=== PATIENT | female | born 1930 | race Hispanic/Latino ===

== ENCOUNTER 2019-12-26 11:20 | Inpatient (IN) | payer MEDICARE ==
[~2019-12-26] VITALS: Ht 172.7 cm; Wt 93.9 kg
[2019-12-26] MEDS ORDERED: SODIUM CHLORIDE 0.9% 1000ML 1,000 ML IV STA (11:59)
[2019-12-26] MEDS ORDERED: ONDANSETRON HCL INJ 2MG/ML 2ML 2 MG/ML VIAL IV STA (11:59)
[2019-12-26 12:11] LABS: BASOPHILS % 0.3 % (0.0-1.0); EOSINOPHILS # (AUTO) 3.7 (0.0-0.4); EOSINOPHILS % 26.2 % (0.0-6.0); HEMATOCRIT 45.5 % (34.2-44.1); HEMOGLOBIN 15.2 g/dL (12.0-16.0); LYMPHOCYTES # (AUTO) 2.2 (1.0-3.2); LYMPHOCYTES % 15.1 % (18.0-39.1); MEAN CORPUSCULAR HEMOGLOBIN 30.5 pg (28-32); MEAN CORPUSCULAR HGB CONC 33.4 g/dL (31-35); MEAN CORPUSCULAR VOLUME 91.4 fL (81-99); MONOCYTES # (AUTO) 0.7 (0.2-0.8); NEUTROPHILS # (AUTO) 7.5 (2.1-6.9); NEUTROPHILS % 52.6 % (38.7-80.0); PLATELET COUNT 290 x10e3/uL (140-360); RED BLOOD COUNT 4.98 x10e6/uL (3.6-5.1); RED CELL DISTRIBUTION WIDTH 16.3 % (11.7-14.4)
[2019-12-26 12:21] LABS: COLOR,URINE YELLOW (YELLOW)
[2019-12-26 12:22] LABS: CLARITY,URINE SL CLOUDY (CLEAR); INR 1.29; KETONES,URINE TRACE (NEGATIVE); LEUKOCYTE ESTERASE ,URINE SMALL (NEGATIVE); NITRITE,URINE NEGATIVE (NEGATIVE); PROTEIN,URINE DIPSTICK TRACE (NEGATIVE); PROTHROMBIN TIME 16.7 seconds (11.9-14.5)
[2019-12-26 12:23] LABS: BACTERIA,URINE RARE /HPF; BILIRUBIN,URINE SMALL (NEGATIVE); EPITHELIAL CELLS,URINE FEW /LPF; PARTIAL THROMBOPLASTIN TIME 28.6 seconds (23.8-35.5); URINE UROBILINOGEN 0.2 mg/dL (0.2 - 1)
[2019-12-26] MEDS ORDERED: PANTOPRAZOLE 40 MG 10ML VIAL IV ONE (12:30)
[2019-12-26 12:31] LABS: ALBUMIN 2.7 g/dL (3.5-5.0); ALBUMIN/GLOBULIN RATIO 0.7 (0.8-2.0); ANION GAP 18.5 mmol/L (8-16); CREATININE, SERUM 1.77 mg/dL (0.57-1.11); MAGNESIUM 2.3 MG/DL (1.3-2.1); POTASSIUM 4.5 mmol/L (3.5-5.1)
[2019-12-26 12:37] LABS: CREATINE KINASE MB 3.2 ng/mL (0-5.0)
[2019-12-26] MEDS ORDERED: MELOXICAM15 MG PO (13:06)
[2019-12-26] MEDS ORDERED: OXYBUTYNIN CHLOR5 M1 PO (13:06)
[2019-12-26] MEDS ORDERED: FAMOTIDINE20 MG PO (13:06)
[2019-12-26] MEDS ORDERED: ESCITALOPRAM OX10 MG PO (13:06)
[2019-12-26] MEDS ORDERED: CLINDAMYCIN HC300 MG PO (13:06)
[2019-12-26 13:27] LABS: OCCULT BLOOD STOOL POSITIVE (NEGATIVE)
[2019-12-26] MEDS: PIPERACILLIN/TAZO 2.25 GM 50 ML IV SCH ×2 (13:35→17:45)
[2019-12-26] MEDS ORDERED: ONDANSETRON HCL INJ 2MG/ML 2ML 2 MG/ML VIAL IV PRN (13:45)
[2019-12-26] MEDS ORDERED: VANCOMYCIN 1GM/NS 250 ML 250 ML IV ONE (14:00)
[2019-12-26] MEDS: SODIUM CHLORIDE 0.9% 1000ML 1,000 ML IV SCH ×2 (14:15→17:45)
[2019-12-26 14:58] LABS: C DIFFICILE TOXIN A&B AMP PROB NEGATIVE (NEGATIVE)
[2019-12-26 15:35] VITALS: BP 126/72
[2019-12-26 16:12] VITALS: BP 126/72
[2019-12-26 16:30] VITALS: BP 126/72
[2019-12-26] MEDS ORDERED: ACETAMINOPHEN 325 MG TAB PO PRN (16:30)
[2019-12-26 18:53] LABS: CREATINE KINASE MB 3.1 ng/mL (0-5.0)
[2019-12-26 20:00] VITALS: BP 149/79
[2019-12-26] MEDS ORDERED: INFLUENZA VIRUS VAC SPLIT INJ 0.5 ML SYR IM SCH (20:30)
[2019-12-26 20:36] VITALS: BP 149/79
[2019-12-26] MEDS ORDERED: FAMOTIDINE 20 MG/2 ML VIAL IV SCH (23:30)
[2019-12-26] MEDS ORDERED: FAMOTIDINE 20 MG/2 ML VIAL IV ONE (23:45)
[2019-12-27] VITALS (8 sets, daily range): BP systolic 108–142; BP diastolic 60–78
[2019-12-27] MEDS: PIPERACILLIN/TAZO 2.25 GM 50 ML IV SCH ×2 (00:29→05:35)
[2019-12-27 01:40] LABS: CREATINE KINASE MB 7.2 ng/mL (0-5.0)
[2019-12-27] MEDS: BALSAM PERU/CASTOR OIL 60 GM OINT...G. TP SCH ×2 (03:52→09:00)
[2019-12-27 06:04] LABS: BASOPHILS % 0.4 % (0.0-1.0); EOSINOPHILS # (AUTO) 2.8 (0.0-0.4); HEMATOCRIT 40.5 % (34.2-44.1); HEMOGLOBIN 13.4 g/dL (12.0-16.0); LYMPHOCYTES # (AUTO) 1.4 (1.0-3.2); LYMPHOCYTES % 12.6 % (18.0-39.1); MEAN CORPUSCULAR HEMOGLOBIN 31.7 pg (28-32); MEAN CORPUSCULAR HGB CONC 33.1 g/dL (31-35); MEAN CORPUSCULAR VOLUME 95.7 fL (81-99); MONOCYTES # (AUTO) 0.6 (0.2-0.8); MONOCYTES % 5.4 % (4.4-11.3); NEUTROPHILS # (AUTO) 6.3 (2.1-6.9); PLATELET COUNT 183 x10e3/uL (140-360); RED BLOOD COUNT 4.23 x10e6/uL (3.6-5.1); RED CELL DISTRIBUTION WIDTH 16.6 % (11.7-14.4)
[2019-12-27 06:24] LABS: CREATINE KINASE MB 3.6 ng/mL (0-5.0)
[2019-12-27 07:00] LABS: ALBUMIN/GLOBULIN RATIO 0.5 (0.8-2.0); ANION GAP 19.1 mmol/L (8-16); CALCIUM 7.3 mg/dL (8.4-10.2); CREATININE, SERUM 1.5 mg/dL (0.57-1.11); POTASSIUM 4.1 mmol/L (3.5-5.1)
[2019-12-27 08:08] LABS: ANISOCYTOSIS SLIGHT; EOSINOPHILS % (MANUAL) 30 % (0-7); HYPOCHROMASIA SLIGHT; LYMPHOCYTES % (MANUAL) 6 % (19-48); MONOCYTES % (MANUAL) 4 % (3.4-9.0); NEUTROPHILS % (MANUAL) 60 % (40-74); PLATELET ESTIMATE ADEQUATE; PLATELET MORPHOLOGY COMMENT NORMAL; RBC MORPHOLOGY COMMENT ABNORMAL
[2019-12-27] MEDS: SODIUM CHLORIDE 0.9% 1000ML 1,000 ML IV SCH (09:45)
[2019-12-27] MEDS: ESCITALOPRAM OXALATE 10 MG TAB PO SCH (09:55)
[2019-12-27] MEDS ORDERED: CEFAZOLIN SOD 1 GM VIAL IV SCH (11:00)
[2019-12-27] MEDS: CEFAZOLIN SOD 1 GM/NS 50ML 50 ML IV SCH ×2 (12:30→21:00)
[2019-12-27] MEDS: VANCOMYCIN 250MG/5ML ORAL SOLN PO SCH ×2 (12:30→22:00)
[2019-12-27] MEDS: FAMOTIDINE 20 MG TAB PO SCH ×2 (12:30→16:45)
[2019-12-27] MEDS: TRAMADOL HCL 50 MG TAB PO PRN ×2 (14:20→21:08)
[2019-12-27] MEDS: ENOXAPARIN 30 MG/0.3 ML SYR SC SCH (16:45)
[2019-12-28] VITALS (8 sets, daily range): BP systolic 108–130; BP diastolic 56–76
[2019-12-28] MEDS: CEFAZOLIN SOD 1 GM/NS 50ML 50 ML IV SCH ×3 (04:22→20:33)
[2019-12-28] MEDS: VANCOMYCIN 250MG/5ML ORAL SOLN PO SCH ×3 (06:07→22:00)
[2019-12-28] MEDS: SODIUM CHLORIDE 0.9% 1000ML 1,000 ML IV SCH (06:07)
[2019-12-28 06:26] LABS: ANION GAP 13.1 mmol/L (8-16); CALCIUM 7.5 mg/dL (8.4-10.2); CREATININE, SERUM 1.23 mg/dL (0.57-1.11); POTASSIUM 3.1 mmol/L (3.5-5.1)
[2019-12-28] MEDS: ESCITALOPRAM OXALATE 10 MG TAB PO SCH (08:43)
[2019-12-28] MEDS: BALSAM PERU/CASTOR OIL 60 GM OINT...G. TP SCH (08:43)
[2019-12-28] MEDS: FAMOTIDINE 20 MG TAB PO SCH ×2 (08:48→17:30)
[2019-12-28] MEDS: TRAMADOL HCL 50 MG TAB PO PRN (08:48)
[2019-12-28 08:53] LABS: BASOPHILS % 0.3 % (0.0-1.0); EOSINOPHILS # (AUTO) 6.3 (0.0-0.4); EOSINOPHILS % 51.1 % (0.0-6.0); HEMATOCRIT 44.1 % (34.2-44.1); HEMOGLOBIN 13.8 g/dL (12.0-16.0); LYMPHOCYTES # (AUTO) 1.2 (1.0-3.2); LYMPHOCYTES % 9.4 % (18.0-39.1); MEAN CORPUSCULAR HEMOGLOBIN 30.1 pg (28-32); MEAN CORPUSCULAR HGB CONC 31.3 g/dL (31-35); MEAN CORPUSCULAR VOLUME 96.3 fL (81-99); MONOCYTES # (AUTO) 0.6 (0.2-0.8); MONOCYTES % 4.7 % (4.4-11.3); NEUTROPHILS # (AUTO) 4.2 (2.1-6.9); NEUTROPHILS % 34.1 % (38.7-80.0); PLATELET COUNT 205 x10e3/uL (140-360); RED BLOOD COUNT 4.58 x10e6/uL (3.6-5.1); RED CELL DISTRIBUTION WIDTH 16.8 % (11.7-14.4)
[2019-12-28 09:22] LABS: MAGNESIUM 1.9 MG/DL (1.3-2.1)
[2019-12-28 09:46] LABS: THYROID STIMULATING HORMONE 1.155 uIU/mL (0.350-4.940)
[2019-12-28] MEDS ORDERED: POTASSIUM CHLORIDE 10MEQ EA PO ONE (11:30)
[2019-12-28] MEDS: LIDOCAINE 4% PATCH TP SCH (11:30)
[2019-12-28] MEDS: LACTATED RINGER'S 1,000 ML INJ SCH (11:30)
[2019-12-28] MEDS: MEGESTROL ACETATE 40 MG TAB PO SCH ×2 (12:00→17:30)
[2019-12-28] MEDS: CHOLESTYRAMINE 4 GM PACKET PO SCH ×2 (12:49→17:48)
[2019-12-28] MEDS: FLUCONAZOLE 100 MG TAB PO SCH (14:57)
[2019-12-28] MEDS: ENOXAPARIN 30 MG/0.3 ML SYR SC SCH (17:30)
[2019-12-29] VITALS: BP 111/78
[2019-12-29] MEDS: LACTATED RINGER'S 1,000 ML INJ SCH ×3 (00:20→22:24)
[2019-12-29] MEDS: TRAMADOL HCL 50 MG TAB PO PRN ×2 (02:45→17:51)
[2019-12-29 04:00] VITALS: BP 122/91
[2019-12-29] MEDS: CEFAZOLIN SOD 1 GM/NS 50ML 50 ML IV SCH ×3 (04:00→22:00)
[2019-12-29] MEDS ORDERED: DIPHENHYDRAMINE HCL 25 MG/10 ML CUP PO PRN (06:15)
[2019-12-29] MEDS: VANCOMYCIN 250MG/5ML ORAL SOLN PO SCH ×3 (06:24→22:23)
[2019-12-29 07:54] VITALS: BP 108/61
[2019-12-29] MEDS: FLUCONAZOLE 100 MG TAB PO SCH (08:25)
[2019-12-29] MEDS: FAMOTIDINE 20 MG TAB PO SCH ×2 (08:25→17:18)
[2019-12-29] MEDS: LIDOCAINE 4% PATCH TP SCH (08:26)
[2019-12-29] MEDS: MEGESTROL ACETATE 40 MG TAB PO SCH ×2 (08:26→17:18)
[2019-12-29] MEDS: ESCITALOPRAM OXALATE 10 MG TAB PO SCH (08:26)
[2019-12-29] MEDS: BALSAM PERU/CASTOR OIL 60 GM OINT...G. TP SCH (08:35)
[2019-12-29] MEDS: NYSTATIN/TRIAMCINOLONE 30 GM CR TOP SCH (08:35)
[2019-12-29] MEDS: CHOLESTYRAMINE 4 GM PACKET PO SCH ×2 (10:00→17:18)
[2019-12-29 11:47] VITALS: BP 108/62
[2019-12-29 15:57] VITALS: BP 101/76
[2019-12-29] MEDS: ENOXAPARIN 30 MG/0.3 ML SYR SC SCH (17:18)
[2019-12-29 20:00] VITALS: BP 124/58
[2019-12-29] MEDS: DIPHENHYDRAMINE HCL ELIX 12.5 MG/5 ML UDC PO PRN (22:24)
[2019-12-30] VITALS (8 sets, daily range): BP systolic 105–131; BP diastolic 48–69
[2019-12-30] MEDS: CEFAZOLIN SOD 1 GM/NS 50ML 50 ML IV SCH (05:50)
[2019-12-30] MEDS: VANCOMYCIN 250MG/5ML ORAL SOLN PO SCH (05:50)
[2019-12-30] MEDS: FLUCONAZOLE 100 MG TAB PO SCH (08:38)
[2019-12-30] MEDS: ESCITALOPRAM OXALATE 10 MG TAB PO SCH (08:38)
[2019-12-30] MEDS: MEGESTROL ACETATE 40 MG TAB PO SCH ×2 (08:38→17:00)
[2019-12-30] MEDS: FAMOTIDINE 20 MG TAB PO SCH ×2 (08:38→16:30)
[2019-12-30] MEDS: LIDOCAINE 4% PATCH TP SCH (09:00)
[2019-12-30] MEDS: AZTREONAM 1 GM/NS 50 ML 50 ML IV SCH ×2 (10:00→22:20)
[2019-12-30] MEDS: CHOLESTYRAMINE 4 GM PACKET PO SCH ×2 (10:00→18:00)
[2019-12-30] MEDS: BALSAM PERU/CASTOR OIL 60 GM OINT...G. TP SCH (10:20)
[2019-12-30] MEDS: NYSTATIN/TRIAMCINOLONE 30 GM CR TOP SCH (10:20)
[2019-12-30 10:21] LABS: ANION GAP 11.9 mmol/L (8-16); CALCIUM 7.6 mg/dL (8.4-10.2); CREATININE, SERUM 1.05 mg/dL (0.57-1.11); POTASSIUM 3.9 mmol/L (3.5-5.1)
[2019-12-30] MEDS ORDERED: ONDANSETRON HCL 4 MG ORAL DISINTEGRATING TAB PO PRN (12:30)
[2019-12-30] MEDS ORDERED: SODIUM CHLORIDE 0.9% 250ML 250 ML ONE (13:58)
[2019-12-30] MEDS: METRONIDAZOLE 500 MG TAB PO SCH ×3 (14:00→22:20)
[2019-12-30] MEDS: VANCOMYCIN 750MG/NS 150ML IVPB 150 ML IV SCH ×2 (14:21→23:00)
[2019-12-30] MEDS: ENOXAPARIN 30 MG/0.3 ML SYR SC SCH (17:00)
[2019-12-30] MEDS: LACTATED RINGER'S 1,000 ML INJ SCH (22:20)
[2019-12-30] MEDS: TRAMADOL HCL 50 MG TAB PO PRN (22:21)
[2019-12-31] VITALS (8 sets, daily range): BP systolic 109–138; BP diastolic 62–79
[2019-12-31] MEDS: DIPHENHYDRAMINE HCL ELIX 12.5 MG/5 ML UDC PO PRN (06:14)
[2019-12-31] MEDS: TRAMADOL HCL 50 MG TAB PO PRN (06:14)
[2019-12-31] MEDS: METRONIDAZOLE 500 MG TAB PO SCH ×2 (06:14→15:00)
[2019-12-31 06:23] LABS: BASOPHILS # (AUTO) 0.1 (0.0-0.1); BASOPHILS % 0.4 % (0.0-1.0); EOSINOPHILS # (AUTO) 6.1 (0.0-0.4); EOSINOPHILS % 51.3 % (0.0-6.0); HEMATOCRIT 40.1 % (34.2-44.1); HEMOGLOBIN 13.3 g/dL (12.0-16.0); LYMPHOCYTES # (AUTO) 1.2 (1.0-3.2); LYMPHOCYTES % 10.4 % (18.0-39.1); MEAN CORPUSCULAR HEMOGLOBIN 31.1 pg (28-32); MEAN CORPUSCULAR HGB CONC 33.2 g/dL (31-35); MEAN CORPUSCULAR VOLUME 93.7 fL (81-99); MONOCYTES # (AUTO) 0.6 (0.2-0.8); MONOCYTES % 5.2 % (4.4-11.3); NEUTROPHILS # (AUTO) 3.7 (2.1-6.9); NEUTROPHILS % 31.4 % (38.7-80.0); PLATELET COUNT 159 x10e3/uL (140-360); RED BLOOD COUNT 4.28 x10e6/uL (3.6-5.1); RED CELL DISTRIBUTION WIDTH 17.2 % (11.7-14.4)
[2019-12-31 06:45] LABS: ANION GAP 13.8 mmol/L (8-16); CALCIUM 7.4 mg/dL (8.4-10.2); CREATININE, SERUM 0.9 mg/dL (0.57-1.11); POTASSIUM 3.8 mmol/L (3.5-5.1)
[2019-12-31 07:43] LABS: EOSINOPHILS % (MANUAL) 43 % (0-7); LYMPHOCYTES % (MANUAL) 5 % (19-48); MONOCYTES % (MANUAL) 5 % (3.4-9.0); NEUTROPHILS % (MANUAL) 45 % (40-74); PLATELET ESTIMATE ADEQUATE; PLATELET MORPHOLOGY COMMENT NORMAL
[2019-12-31 07:44] LABS: ANISOCYTOSIS SLIGHT; RBC MORPHOLOGY COMMENT NORMAL; TEAR DROP CELLS FEW
[2019-12-31] MEDS: ESCITALOPRAM OXALATE 10 MG TAB PO SCH (08:23)
[2019-12-31] MEDS: FLUCONAZOLE 100 MG TAB PO SCH (08:23)
[2019-12-31] MEDS: FAMOTIDINE 20 MG TAB PO SCH ×2 (08:23→15:31)
[2019-12-31] MEDS: LIDOCAINE 4% PATCH TP SCH (08:24)
[2019-12-31] MEDS: MEGESTROL ACETATE 40 MG TAB PO SCH ×2 (08:24→16:13)
[2019-12-31] MEDS: NYSTATIN/TRIAMCINOLONE 30 GM CR TOP SCH (09:56)
[2019-12-31] MEDS: BALSAM PERU/CASTOR OIL 60 GM OINT...G. TP SCH (09:56)
[2019-12-31] MEDS: CHOLESTYRAMINE 4 GM PACKET PO SCH ×2 (10:00→17:27)
[2019-12-31] MEDS: AZTREONAM 1 GM/NS 50 ML 50 ML IV SCH (10:47)
[2019-12-31] MEDS ORDERED: VANCOMYCIN 750MG/NS 150ML IVPB 150 ML IV SCH (15:30)
[2019-12-31] MEDS: ENOXAPARIN 30 MG/0.3 ML SYR SC SCH (16:13)
[2019-12-31] MEDS: VANCOMYCIN 250MG/5ML ORAL SOLN PO SCH (18:47)
[2020-01-01] VITALS (11 sets, daily range): BP systolic 94–140; BP diastolic 64–91
[2020-01-01] MEDS: VANCOMYCIN 250MG/5ML ORAL SOLN PO SCH ×3 (03:30→22:10)
[2020-01-01] MEDS: MEGESTROL ACETATE 40 MG TAB PO SCH ×2 (08:16→16:04)
[2020-01-01] MEDS: ESCITALOPRAM OXALATE 10 MG TAB PO SCH (08:16)
[2020-01-01] MEDS: FAMOTIDINE 20 MG TAB PO SCH ×2 (08:17→16:04)
[2020-01-01] MEDS: FLUCONAZOLE 100 MG TAB PO SCH (08:17)
[2020-01-01] MEDS: BALSAM PERU/CASTOR OIL 60 GM OINT...G. TP SCH (08:19)
[2020-01-01] MEDS: NYSTATIN/TRIAMCINOLONE 30 GM CR TOP SCH (08:20)
[2020-01-01] MEDS: LIDOCAINE 4% PATCH TP SCH (08:21)
[2020-01-01] MEDS: CHOLESTYRAMINE 4 GM PACKET PO SCH ×2 (09:00→17:01)
[2020-01-01] MEDS ORDERED: VANCOMYCIN 250MG/5ML ORAL SOLN PO SCH (09:00)
[2020-01-01] MEDS: ENOXAPARIN 30 MG/0.3 ML SYR SC SCH (16:04)
[2020-01-01] MEDS: TRAMADOL HCL 50 MG TAB PO PRN (22:40)
[2020-01-02 00:24] VITALS: BP 144/73
[2020-01-02] MEDS: VANCOMYCIN 250MG/5ML ORAL SOLN PO SCH ×4 (01:21→17:14)
[2020-01-02 05:51] VITALS: BP 106/89
[2020-01-02] MEDS: ESCITALOPRAM OXALATE 10 MG TAB PO SCH (08:23)
[2020-01-02] MEDS: FLUCONAZOLE 100 MG TAB PO SCH (08:23)
[2020-01-02] MEDS: MEGESTROL ACETATE 40 MG TAB PO SCH ×2 (08:23→16:38)
[2020-01-02] MEDS: FAMOTIDINE 20 MG TAB PO SCH ×2 (08:23→16:38)
[2020-01-02] MEDS: BALSAM PERU/CASTOR OIL 60 GM OINT...G. TP SCH (08:24)
[2020-01-02] MEDS: NYSTATIN/TRIAMCINOLONE 30 GM CR TOP SCH (08:24)
[2020-01-02] MEDS: LIDOCAINE 4% PATCH TP SCH (08:24)
[2020-01-02 08:26] LABS: BASOPHILS % 0.3 % (0.0-1.0); HEMATOCRIT 34.5 % (34.2-44.1); HEMOGLOBIN 11.3 g/dL (12.0-16.0); LYMPHOCYTES # (AUTO) 1.6 (1.0-3.2); LYMPHOCYTES % 13.5 % (18.0-39.1); MEAN CORPUSCULAR HEMOGLOBIN 30.2 pg (28-32); MEAN CORPUSCULAR HGB CONC 32.8 g/dL (31-35); MEAN CORPUSCULAR VOLUME 92.2 fL (81-99); MONOCYTES # (AUTO) 0.8 (0.2-0.8); MONOCYTES % 6.7 % (4.4-11.3); NEUTROPHILS # (AUTO) 3.3 (2.1-6.9); NEUTROPHILS % 27.8 % (38.7-80.0); PLATELET COUNT 135 x10e3/uL (140-360); RED BLOOD COUNT 3.74 x10e6/uL (3.6-5.1); RED CELL DISTRIBUTION WIDTH 17.4 % (11.7-14.4)
[2020-01-02 08:41] VITALS: BP 110/64
[2020-01-02 08:52] LABS: ANION GAP 10.6 mmol/L (8-16); BLOOD UREA NITROGEN 21 mg/dL (7-26); BUN/CREATININE RATIO 27 (6-25); CARBON DIOXIDE 19 mmol/L (22-29); CHLORIDE 108 mmol/L (98-107); CREATININE, SERUM 0.78 mg/dL (0.57-1.11); EST GLOMERULAR FILTRATION RATE > 60 ML/MIN (60-); GLUCOSE 72 mg/dL (74-118); POTASSIUM 3.6 mmol/L (3.5-5.1); SODIUM 134 mmol/L (136-145)
[2020-01-02 08:55] LABS: CALCIUM 6.8 mg/dL (8.4-10.2)
[2020-01-02 09:15] VITALS: BP 110/64
[2020-01-02] MEDS: CHOLESTYRAMINE 4 GM PACKET PO SCH ×2 (10:37→17:44)
[2020-01-02] MEDS: FOLIC ACID/CYANOCOB/PYRIDOXINE TAB PO SCH (10:37)
[2020-01-02 12:09] LABS: % IRON SATURATION 70 % (15-50); IRON 79 ug/dL (50-170); TOTAL IRON BINDING CAPACITY 113 ug/dL (261-478); TRANSFERRIN 81 mg/dL (180-382)
[2020-01-02 16:35] VITALS: BP 110/59
[2020-01-02] MEDS: ENOXAPARIN 30 MG/0.3 ML SYR SC SCH (16:38)
[2020-01-02 20:22] VITALS: BP 119/68
[2020-01-02] MEDS: DIPHENHYDRAMINE HCL ELIX 12.5 MG/5 ML UDC PO PRN (23:50)
[2020-01-03] VITALS (9 sets, daily range): BP systolic 100–146; BP diastolic 64–88
[2020-01-03] MEDS: VANCOMYCIN 250MG/5ML ORAL SOLN PO SCH ×4 (00:46→18:06)
[2020-01-03 05:28] LABS: BASOPHILS # (AUTO) 0.1 (0.0-0.1); BASOPHILS % 0.4 % (0.0-1.0); EOSINOPHILS # (AUTO) 6.8 (0.0-0.4); EOSINOPHILS % 50.8 % (0.0-6.0); HEMATOCRIT 37.1 % (34.2-44.1); HEMOGLOBIN 12.3 g/dL (12.0-16.0); LYMPHOCYTES % 15.2 % (18.0-39.1); MEAN CORPUSCULAR HEMOGLOBIN 30.3 pg (28-32); MEAN CORPUSCULAR HGB CONC 33.2 g/dL (31-35); MEAN CORPUSCULAR VOLUME 91.4 fL (81-99); MONOCYTES % 7.5 % (4.4-11.3); NEUTROPHILS # (AUTO) 3.4 (2.1-6.9); NEUTROPHILS % 25.4 % (38.7-80.0); PLATELET COUNT 166 x10e3/uL (140-360); RED BLOOD COUNT 4.06 x10e6/uL (3.6-5.1); RED CELL DISTRIBUTION WIDTH 17.6 % (11.7-14.4)
[2020-01-03 05:49] LABS: ANION GAP 13.3 mmol/L (8-16); BLOOD UREA NITROGEN 18 mg/dL (7-26); BUN/CREATININE RATIO 23 (6-25); CALCIUM 7.5 mg/dL (8.4-10.2); CARBON DIOXIDE 17 mmol/L (22-29); CHLORIDE 110 mmol/L (98-107); CREATININE, SERUM 0.79 mg/dL (0.57-1.11); EST GLOMERULAR FILTRATION RATE > 60 ML/MIN (60-); GLUCOSE 90 mg/dL (74-118); POTASSIUM 3.3 mmol/L (3.5-5.1); SODIUM 137 mmol/L (136-145)
[2020-01-03 07:05] LABS: BAND NEUTROPHILS % (MANUAL) 1 %; EOSINOPHILS % (MANUAL) 46 % (0-7); LYMPHOCYTES % (MANUAL) 11 % (19-48); MONOCYTES % (MANUAL) 5 % (3.4-9.0); NEUTROPHILS % (MANUAL) 37 % (40-74)
[2020-01-03 07:06] LABS: RBC MORPHOLOGY COMMENT ABNORMAL; SCHISTOCYTES FEW; TEAR DROP CELLS FEW
[2020-01-03 07:07] LABS: TOXIC GRANULATION FEW
[2020-01-03 07:08] LABS: ANISOCYTOSIS SLIGHT; PLATELET ESTIMATE ADEQUATE; PLATELET MORPHOLOGY COMMENT NORMAL
[2020-01-03] MEDS: BALSAM PERU/CASTOR OIL 60 GM OINT...G. TP SCH (09:51)
[2020-01-03] MEDS: FOLIC ACID/CYANOCOB/PYRIDOXINE TAB PO SCH (09:51)
[2020-01-03] MEDS: LIDOCAINE 4% PATCH TP SCH (09:51)
[2020-01-03] MEDS: NYSTATIN/TRIAMCINOLONE 30 GM CR TOP SCH (09:51)
[2020-01-03] MEDS: MEGESTROL ACETATE 40 MG TAB PO SCH ×2 (09:51→17:35)
[2020-01-03] MEDS: FLUCONAZOLE 100 MG TAB PO SCH (09:52)
[2020-01-03] MEDS: ESCITALOPRAM OXALATE 10 MG TAB PO SCH (09:52)
[2020-01-03] MEDS: FAMOTIDINE 20 MG TAB PO SCH ×2 (09:52→17:35)
[2020-01-03] MEDS: CHOLESTYRAMINE 4 GM PACKET PO SCH ×2 (10:00→18:00)
[2020-01-03] MEDS ORDERED: POTASSIUM CHLORIDE 10MEQ EA PO ONE (10:00)
[2020-01-03] MEDS: ENOXAPARIN 30 MG/0.3 ML SYR SC SCH (17:39)
[2020-01-04] VITALS (8 sets, daily range): BP systolic 123–151; BP diastolic 76–91
[2020-01-04] MEDS: VANCOMYCIN 250MG/5ML ORAL SOLN PO SCH ×4 (01:09→17:51)
[2020-01-04] MEDS: ESCITALOPRAM OXALATE 10 MG TAB PO SCH (09:21)
[2020-01-04] MEDS: MEGESTROL ACETATE 40 MG TAB PO SCH ×2 (09:21→17:51)
[2020-01-04] MEDS: FLUCONAZOLE 100 MG TAB PO SCH (09:21)
[2020-01-04] MEDS: FAMOTIDINE 20 MG TAB PO SCH ×2 (09:21→17:51)
[2020-01-04] MEDS: FOLIC ACID/CYANOCOB/PYRIDOXINE TAB PO SCH (09:21)
[2020-01-04] MEDS: LIDOCAINE 4% PATCH TP SCH (09:22)
[2020-01-04] MEDS: NYSTATIN/TRIAMCINOLONE 30 GM CR TOP SCH (09:22)
[2020-01-04] MEDS: BALSAM PERU/CASTOR OIL 60 GM OINT...G. TP SCH (09:22)
[2020-01-04] MEDS: CHOLESTYRAMINE 4 GM PACKET PO SCH ×2 (10:00→18:00)
[2020-01-04] MEDS: ENOXAPARIN 30 MG/0.3 ML SYR SC SCH (17:49)
[2020-01-05] VITALS (7 sets, daily range): BP systolic 96–149; BP diastolic 66–84
[2020-01-05] MEDS: VANCOMYCIN 250MG/5ML ORAL SOLN PO SCH ×3 (00:02→12:00)
[2020-01-05] MEDS: FAMOTIDINE 20 MG TAB PO SCH ×2 (07:30→16:30)
[2020-01-05 08:02] LABS: BASOPHILS % 0.3 % (0.0-1.0); EOSINOPHILS # (AUTO) 4.5 (0.0-0.4); EOSINOPHILS % 39.5 % (0.0-6.0); HEMATOCRIT 37.8 % (34.2-44.1); HEMOGLOBIN 12.6 g/dL (12.0-16.0); LYMPHOCYTES # (AUTO) 1.9 (1.0-3.2); LYMPHOCYTES % 16.2 % (18.0-39.1); MEAN CORPUSCULAR HEMOGLOBIN 30.7 pg (28-32); MEAN CORPUSCULAR HGB CONC 33.3 g/dL (31-35); MONOCYTES # (AUTO) 0.9 (0.2-0.8); MONOCYTES % 7.5 % (4.4-11.3); NEUTROPHILS # (AUTO) 4.2 (2.1-6.9); NEUTROPHILS % 36.2 % (38.7-80.0); PLATELET COUNT 190 x10e3/uL (140-360); RED BLOOD COUNT 4.11 x10e6/uL (3.6-5.1); RED CELL DISTRIBUTION WIDTH 18.1 % (11.7-14.4)
[2020-01-05 08:29] LABS: ANION GAP 12.9 mmol/L (8-16); BLOOD UREA NITROGEN 14 mg/dL (7-26); BUN/CREATININE RATIO 20 (6-25); CALCIUM 7.6 mg/dL (8.4-10.2); CARBON DIOXIDE 19 mmol/L (22-29); CHLORIDE 112 mmol/L (98-107); CREATININE, SERUM 0.71 mg/dL (0.57-1.11); EST GLOMERULAR FILTRATION RATE > 60 ML/MIN (60-); GLUCOSE 72 mg/dL (74-118); POTASSIUM 3.9 mmol/L (3.5-5.1); SODIUM 140 mmol/L (136-145)
[2020-01-05] MEDS: BALSAM PERU/CASTOR OIL 60 GM OINT...G. TP SCH (09:00)
[2020-01-05] MEDS: LIDOCAINE 4% PATCH TP SCH (09:00)
[2020-01-05] MEDS: MEGESTROL ACETATE 40 MG TAB PO SCH ×2 (09:00→17:00)
[2020-01-05] MEDS: ESCITALOPRAM OXALATE 10 MG TAB PO SCH (09:00)
[2020-01-05] MEDS: NYSTATIN/TRIAMCINOLONE 30 GM CR TOP SCH (09:00)
[2020-01-05] MEDS: FOLIC ACID/CYANOCOB/PYRIDOXINE TAB PO SCH (09:00)
[2020-01-05] MEDS: CHOLESTYRAMINE 4 GM PACKET PO SCH (10:00)
[2020-01-05] MEDS: ENOXAPARIN 30 MG/0.3 ML SYR SC SCH (17:00)
[2020-01-06] VITALS: BP 142/80
[2020-01-06 04:00] VITALS: BP 138/66
[2020-01-06 08:23] VITALS: BP 125/71
[2020-01-06 08:39] VITALS: BP 125/71
[2020-01-06] MEDS: BALSAM PERU/CASTOR OIL 60 GM OINT...G. TP SCH (08:43)
[2020-01-06] MEDS: FOLIC ACID/CYANOCOB/PYRIDOXINE TAB PO SCH (08:43)
[2020-01-06] MEDS: NYSTATIN/TRIAMCINOLONE 30 GM CR TOP SCH (08:43)
[2020-01-06] MEDS: FAMOTIDINE 20 MG TAB PO SCH (08:43)
[2020-01-06] MEDS: LIDOCAINE 4% PATCH TP SCH (08:43)
[2020-01-06] MEDS: ESCITALOPRAM OXALATE 10 MG TAB PO SCH (08:43)
[2020-01-06] MEDS: MEGESTROL ACETATE 40 MG TAB PO SCH (08:43)
[2020-01-06] MEDS ORDERED: INFLUENZA VIRUS VAC SPLIT INJ 0.5 ML SYR IM SCH (12:00)
[2020-01-06 12:14] VITALS: BP 139/72
== END 2020-01-06 12:25 | disposition home health service (06) | DRG 871 ==
LOC: ER 11:32 → ERHOLD 13:32 → MED/SURG2 15:39
PROVIDERS: ADMIT Internal Medicine; ATTEND Internal Medicine
PROC: 05HY33Z Insertion of Infusion Device into Upper Vein, Percutaneous Approach (ICD-10-PCS; principal; 2019-12-31)
DX: A41.9 Sepsis, unspecified organism (principal); G92 Toxic encephalopathy; L89.313 Pressure ulcer of right buttock, stage 3; N17.9 Acute kidney failure, unspecified; N39.0 Urinary tract infection, site not specified; K44.0 Diaphragmatic hernia with obstruction, without gangrene; Z16.24 Resistance to multiple antibiotics; F03.91 Unspecified dementia, unspecified severity, with behavioral disturbance; L89.610 Pressure ulcer of right heel, unstageable; Z86.19 Personal history of other infectious and parasitic diseases; Z74.09 Other reduced mobility; R63.0 Anorexia; Z68.31 Body mass index [BMI] 31.0-31.9, adult; B96.89 Other specified bacterial agents as the cause of diseases classified elsewhere; K44.9 Diaphragmatic hernia without obstruction or gangrene; E86.0 Dehydration; M19.90 Unspecified osteoarthritis, unspecified site; E66.01 Morbid (severe) obesity due to excess calories; L89.212 Pressure ulcer of right hip, stage 2
CPT/HCPCS: 36415; 51700; 71045; 71250; 74176; 80048; 80053; 80202; 81001; 82150; 82270; 82550; 82553; 82607; 82746; 82948; 83090; 83540; 83690; 83735; 83880; 84100; 84443; 84466; 84484; 85025; 85610; 85730; 87040; 87071; 87086; 87177; 87186; 87205; 87328; 87493; 93005; 93970; 97139; 99251; 99284; J0690; J1650; J2405; J2543; J3370; J7030; J7050; J7121; Q0163; U0002

== ENCOUNTER 2020-02-01 07:23 | Inpatient (IN) | payer MEDICARE ==
[2020-02-01] VITALS (11 sets, daily range): BP systolic 85–113; BP diastolic 40–67
[~2020-02-01] VITALS: Ht 160 cm; Wt 101.6 kg
[~2020-02-01 07:23] MED LIST: CLINDAMYCIN HC300 MG PO; ESCITALOPRAM OX10 MG PO; FAMOTIDINE20 MG PO; MELOXICAM15 MG PO; OXYBUTYNIN CHLOR5 M1 PO
[2020-02-01] MEDS ORDERED: ASPIRIN 81 MG CHEW TAB PO ONE (07:45)
[2020-02-01] MEDS ORDERED: CEFEPIME 1GM/NS 0.9% 50 ML 50 ML IV STA (07:56)
[2020-02-01 08:02] LABS: BASOPHILS # (AUTO) 0.1 (0.0-0.1); BASOPHILS % 0.5 % (0.0-1.0); EOSINOPHILS # (AUTO) 0.1 (0.0-0.4); EOSINOPHILS % 0.3 % (0.0-6.0); HEMATOCRIT 38.1 % (34.2-44.1); HEMOGLOBIN 12.4 g/dL (12.0-16.0); LYMPHOCYTES # (AUTO) 1.6 (1.0-3.2); LYMPHOCYTES % 8.3 % (18.0-39.1); MEAN CORPUSCULAR HEMOGLOBIN 29.4 pg (28-32); MEAN CORPUSCULAR HGB CONC 32.5 g/dL (31-35); MEAN CORPUSCULAR VOLUME 90.3 fL (81-99); MONOCYTES # (AUTO) 1.2 (0.2-0.8); MONOCYTES % 6.1 % (4.4-11.3); NEUTROPHILS # (AUTO) 15.9 (2.1-6.9); NEUTROPHILS % 82.4 % (38.7-80.0); PLATELET COUNT 396 x10e3/uL (140-360); RED BLOOD COUNT 4.22 x10e6/uL (3.6-5.1); RED CELL DISTRIBUTION WIDTH 17.2 % (11.7-14.4)
[2020-02-01] MEDS ORDERED: SODIUM CHLORIDE 0.9% 1000ML 1,000 ML IV STA ×2 (08:15)
[2020-02-01 08:20] LABS: ALBUMIN 1.5 g/dL (3.5-5.0); ALBUMIN/GLOBULIN RATIO 0.3 (0.8-2.0); ANION GAP 18.9 mmol/L (8-16); CALCIUM 7.4 mg/dL (8.4-10.2); CREATININE, SERUM 1.35 mg/dL (0.57-1.11); POTASSIUM 3.9 mmol/L (3.5-5.1)
[2020-02-01 08:26] LABS: CREATINE KINASE MB 1.2 ng/mL (0-5.0)
[2020-02-01 08:58] LABS: CLARITY,URINE CLOUDY (CLEAR); COLOR,URINE YELLOW (YELLOW)
[2020-02-01 08:59] LABS: KETONES,URINE TRACE (NEGATIVE); LEUKOCYTE ESTERASE ,URINE NEGATIVE (NEGATIVE); NITRITE,URINE NEGATIVE (NEGATIVE); PROTEIN,URINE DIPSTICK >=300 (NEGATIVE)
[2020-02-01 09:00] LABS: BACTERIA,URINE RARE /HPF; BILIRUBIN,URINE MODERATE (NEGATIVE); EPITHELIAL CELLS,URINE FEW /LPF
[2020-02-01] MEDS ORDERED: VANCOMYCIN 1GM/NS 250 ML 250 ML IV STA (09:19)
[2020-02-01] MEDS ORDERED: MORPHINE SULFATE INJ 4 MG/ML INJ 1ML IV PRN (09:30)
[2020-02-01] MEDS ORDERED: ONDANSETRON HCL INJ 2MG/ML 2ML 2 MG/ML VIAL IV PRN ×2 (09:30→14:45)
[2020-02-01] MEDS ORDERED: CLINDAMYCIN HC300 MG (09:59)
[2020-02-01 11:39] LABS: ANION GAP 15.5 mmol/L (8-16); CREATININE, SERUM 1.09 mg/dL (0.57-1.11); POTASSIUM 3.5 mmol/L (3.5-5.1)
[2020-02-01 11:42] LABS: CALCIUM 6.4 mg/dL (8.4-10.2)
[2020-02-01] MEDS ORDERED: SODIUM BICARBONATE 8.4% INJ 50 ML SYR IV STA ×3 (11:46→11:55)
[2020-02-01] MEDS ORDERED: SODIUM CHLORIDE 0.9% 1000ML 1,000 ML IV SCH (12:00)
[2020-02-01] MEDS ORDERED: [UNRECOGNIZED DRUG - OTHER] IV ONE ×3 (12:30)
[2020-02-01] MEDS ORDERED: SODIUM BICARBONATE IV ONE ×3 (12:30)
[2020-02-01] MEDS ORDERED: FENTANYL 2000MCG/NS 250 250 ML IV PRN (13:00)
[2020-02-01] MEDS ORDERED: ETOMIDATE 2 MG/ML 10 ML INJ IV ONE (13:04)
[2020-02-01] MEDS ORDERED: SUCCINYLCHOLINE CHLORIDE 20 MG/ML 10ML VIAL ONE (13:04)
[2020-02-01] MEDS ORDERED: MIDAZOLAM HCL 2 MG/2 ML VIAL ONE (13:04)
[2020-02-01] MEDS: NOREPINEPHRINE 8 MG/D5W 250 ML 250 ML IV SCH (14:00)
[2020-02-01] MEDS: SODIUM CHLORIDE 0.9% 1000ML 1,000 ML IV SCH ×2 (14:10→19:40)
[2020-02-01] MEDS ORDERED: NOREPINEPHRINE 8 MG/D5W 250 ML 250 ML ONE (14:27)
[2020-02-01] MEDS ORDERED: HYDRALAZINE HCL 20 MG/ML VIAL IV PRN (14:45)
[2020-02-01] MEDS ORDERED: ACETAMINOPHEN 325 MG TAB PO PRN (14:45)
[2020-02-01] MEDS ORDERED: MELATONIN 5 MG TABLET PO PRN (14:45)
[2020-02-01] MEDS ORDERED: DOCUSATE SODIUM 100 MG CAP PO PRN (14:45)
[2020-02-01] MEDS ORDERED: ALBUTEROL/IPRATROPIUM 3 ML NEB NEB PRN (14:45)
[2020-02-01] MEDS: MEROPENEM 1GM 100 ML IV SCH ×2 (14:49→22:37)
[2020-02-01] MEDS ORDERED: SODIUM BICARBONATE 8.4% 150 ML in DEXTROSE 5% 1,000 ML IV ONE (15:00)
[2020-02-01] MEDS ORDERED: IOPAMIDOL 370 MG/ML 200 ML INFUS..BTL INJ ONE (15:06)
[2020-02-01] MEDS ORDERED: SODIUM CHLORIDE 0.9% 50ML 50 ML ONE (15:06)
[2020-02-01] MEDS ORDERED: CALCIUM GLUCONATE 10% INJ 9.3 MEQ in SODIUM CHLORIDE 0.9% 100 ML 100 ML IV ONE ×2 (16:30→23:30)
[2020-02-01 16:50] LABS: ABG HCO3 8 mmol/L (22-26); ABG PCO2 21 mmHg (35-45); ABG PH 7.21 (7.35-7.45); ABG PO2 129 mmHg (80-105); ABG TCO2 9
[2020-02-01 16:53] LABS: ABG HCO3 19 mmol/L (22-26); ABG PCO2 35 mmHg (35-45); ABG PH 7.34 (7.35-7.45); ABG PO2 110 mmHg (80-105); ABG TCO2 20
[2020-02-01] MEDS: NYSTATIN 15 GM POWDER UD BTL TOP SCH (17:42)
[2020-02-01] MEDS: ENOXAPARIN SOD INJ 40 MG/0.4 ML SYR SC SCH (17:42)
[2020-02-01 17:57] LABS: CREATINE KINASE MB 2.9 ng/mL (0-5.0)
[2020-02-01] MEDS: VANCOMYCIN 1GM/NS 250 ML 250 ML IV SCH (22:37)
[2020-02-01] MEDS: MIDAZOLAM HCL 5MG/ML 10ML VIAL 100 ML IV PRN (22:39)
[2020-02-01 23:09] LABS: ANION GAP 12.7 mmol/L (8-16); CREATININE, SERUM 1.09 mg/dL (0.57-1.11)
[2020-02-01 23:15] LABS: CALCIUM 6.6 mg/dL (8.4-10.2); POTASSIUM 2.7 mmol/L (3.5-5.1)
[2020-02-01 23:38] LABS: CREATINE KINASE MB 2.3 ng/mL (0-5.0)
[2020-02-01] MEDS ORDERED: POTASSIUM CHLORIDE 20MEQ/100ML 300 ML ONE (23:39)
[2020-02-01] MEDS ORDERED: CALCIUM GLUCONATE 10% INJ 0.465 MEQ/ML VIAL ONE (23:43)
[2020-02-01] MEDS ORDERED: SODIUM CHLORIDE 0.9% 100 ML ONE (23:43)
[2020-02-01] MEDS: SODIUM BICARBONATE 8.4% SYRING 150 ML in DEXTROSE 5% 1,000 ML IV SCH (23:51)
[2020-02-01] MEDS: POTASSIUM CHLORIDE 20MEQ/100ML 100 ML IV SCH (23:52)
[2020-02-02] VITALS (25 sets, daily range): BP systolic 81–139; BP diastolic 44–89
[2020-02-02] MEDS: POTASSIUM CHLORIDE 20MEQ/100ML 100 ML IV SCH ×2 (02:00→03:59)
[2020-02-02] MEDS: SODIUM CHLORIDE 0.9% 1000ML 1,000 ML IV SCH (02:20)
[2020-02-02] MEDS: NOREPINEPHRINE 8 MG/D5W 250 ML 250 ML IV SCH ×3 (03:15→17:59)
[2020-02-02 06:00] LABS: BASOPHILS # (AUTO) 0.1 (0.0-0.1); BASOPHILS % 0.4 % (0.0-1.0); EOSINOPHILS # (AUTO) 0.1 (0.0-0.4); EOSINOPHILS % 0.4 % (0.0-6.0); HEMATOCRIT 33.9 % (34.2-44.1); HEMOGLOBIN 11.3 g/dL (12.0-16.0); LYMPHOCYTES # (AUTO) 1.7 (1.0-3.2); LYMPHOCYTES % 7.1 % (18.0-39.1); MEAN CORPUSCULAR HEMOGLOBIN 29.3 pg (28-32); MEAN CORPUSCULAR HGB CONC 33.3 g/dL (31-35); MEAN CORPUSCULAR VOLUME 87.8 fL (81-99); MONOCYTES # (AUTO) 2.4 (0.2-0.8); MONOCYTES % 9.8 % (4.4-11.3); NEUTROPHILS # (AUTO) 19.9 (2.1-6.9); NEUTROPHILS % 80.9 % (38.7-80.0); PLATELET COUNT 325 x10e3/uL (140-360); RED BLOOD COUNT 3.86 x10e6/uL (3.6-5.1); RED CELL DISTRIBUTION WIDTH 17.4 % (11.7-14.4)
[2020-02-02 06:29] LABS: ALBUMIN 1.2 g/dL (3.5-5.0); ALBUMIN/GLOBULIN RATIO 0.3 (0.8-2.0); ANION GAP 13.9 mmol/L (8-16); CREATININE, SERUM 1.18 mg/dL (0.57-1.11); MAGNESIUM 1.3 MG/DL (1.3-2.1); PHOSPHORUS 3.4 MG/DL (2.3-4.7); POTASSIUM 3.9 mmol/L (3.5-5.1)
[2020-02-02] MEDS: MEROPENEM 1GM 100 ML IV SCH ×3 (06:40→22:17)
[2020-02-02] MEDS: MIDAZOLAM HCL 5MG/ML 10ML VIAL 100 ML IV PRN (07:13)
[2020-02-02] MEDS: NYSTATIN 15 GM POWDER UD BTL TOP SCH ×2 (08:33→17:58)
[2020-02-02] MEDS: PROPOFOL IV EMULSION 50 ML IV SCH (08:45)
[2020-02-02] MEDS ORDERED: ALBUMIN 25% 25GM 100ML 0.25 GM/ML BTL IV ONE (09:15)
[2020-02-02] MEDS: VANCOMYCIN 1GM/NS 250 ML 250 ML IV SCH ×2 (09:58→22:17)
[2020-02-02 10:22] LABS: ABG PCO2 34 mmHg (35-45); ABG PH 7.42 (7.35-7.45); ABG PO2 90 mmHg (80-105)
[2020-02-02 10:23] LABS: ABG HCO3 22 mmol/L (22-26); ABG TCO2 23
[2020-02-02] MEDS: SODIUM BICARBONATE 8.4% SYRING 150 ML in DEXTROSE 5% 1,000 ML IV SCH (11:51)
[2020-02-02] MEDS: LACTATED RINGER'S 1,000 ML INJ SCH (14:54)
[2020-02-02] MEDS: ENOXAPARIN SOD INJ 40 MG/0.4 ML SYR SC SCH (17:58)
[2020-02-03] VITALS (26 sets, daily range): BP systolic 84–152; BP diastolic 44–90
[2020-02-03 04:50] LABS: BASOPHILS # (AUTO) 0.1 (0.0-0.1); BASOPHILS % 0.4 % (0.0-1.0); EOSINOPHILS % 5.8 % (0.0-6.0); HEMATOCRIT 29.5 % (34.2-44.1); HEMOGLOBIN 9.5 g/dL (12.0-16.0); LYMPHOCYTES # (AUTO) 1.6 (1.0-3.2); LYMPHOCYTES % 9.5 % (18.0-39.1); MEAN CORPUSCULAR HEMOGLOBIN 28.6 pg (28-32); MEAN CORPUSCULAR HGB CONC 32.2 g/dL (31-35); MEAN CORPUSCULAR VOLUME 88.9 fL (81-99); MONOCYTES # (AUTO) 1.2 (0.2-0.8); MONOCYTES % 7.1 % (4.4-11.3); NEUTROPHILS # (AUTO) 12.8 (2.1-6.9); NEUTROPHILS % 75.7 % (38.7-80.0); PLATELET COUNT 248 x10e3/uL (140-360); RED BLOOD COUNT 3.32 x10e6/uL (3.6-5.1); RED CELL DISTRIBUTION WIDTH 17.6 % (11.7-14.4)
[2020-02-03 05:12] LABS: ALBUMIN 1.5 g/dL (3.5-5.0); ALBUMIN/GLOBULIN RATIO 0.5 (0.8-2.0); ANION GAP 12.4 mmol/L (8-16); CREATININE, SERUM 1.22 mg/dL (0.57-1.11); POTASSIUM 3.4 mmol/L (3.5-5.1)
[2020-02-03 05:16] LABS: CALCIUM 6.8 mg/dL (8.4-10.2)
[2020-02-03] MEDS: LACTATED RINGER'S 1,000 ML INJ SCH ×2 (06:10→15:19)
[2020-02-03] MEDS: MEROPENEM 1GM 100 ML IV SCH ×3 (06:10→22:40)
[2020-02-03] MEDS: NYSTATIN 15 GM POWDER UD BTL TOP SCH ×2 (08:13→16:08)
[2020-02-03] MEDS: BALSAM PERU/CASTOR OIL 60 GM OINT...G. TP SCH (08:13)
[2020-02-03] MEDS: DEXAMETHASONE SOD PHOS INJ 4 MG/ML VIAL IV SCH (08:13)
[2020-02-03] MEDS: PROPOFOL IV EMULSION 50 ML IV SCH (08:45)
[2020-02-03] MEDS: VANCOMYCIN 1GM/NS 250 ML 250 ML IV SCH (10:00)
[2020-02-03 10:37] LABS: ABG HCO3 24 mmol/L (22-26); ABG PCO2 38 mmHg (35-45); ABG PH 7.41 (7.35-7.45); ABG PO2 129 mmHg (80-105); ABG TCO2 25
[2020-02-03] MEDS ORDERED: POTASSIUM CHLORIDE 20MEQ/15ML UDC NG NR (12:30)
[2020-02-03] MEDS ORDERED: CALCIUM GLUCONATE 10% INJ 13.95 MEQ in SODIUM CHLORIDE 0.9% 100 ML 100 ML IV ONE (12:30)
[2020-02-03] MEDS: NOREPINEPHRINE 8 MG/D5W 250 ML 250 ML IV SCH (13:00)
[2020-02-03] MEDS: ENOXAPARIN SOD INJ 40 MG/0.4 ML SYR SC SCH (16:08)
[2020-02-03] MEDS: CALCIUM CARBONATE 500 MG CHEWABLE TABS PO SCH (16:08)
[2020-02-04] VITALS (26 sets, daily range): BP systolic 88–136; BP diastolic 59–84
[2020-02-04] MEDS: LACTATED RINGER'S 1,000 ML INJ SCH (04:15)
[2020-02-04] MEDS: MEROPENEM 1GM 100 ML IV SCH ×3 (06:05→22:23)
[2020-02-04 06:10] LABS: BASOPHILS % 0.3 % (0.0-1.0); EOSINOPHILS % 0.3 % (0.0-6.0); HEMATOCRIT 28.7 % (34.2-44.1); HEMOGLOBIN 9.5 g/dL (12.0-16.0); LYMPHOCYTES # (AUTO) 1.5 (1.0-3.2); LYMPHOCYTES % 9.6 % (18.0-39.1); MEAN CORPUSCULAR HEMOGLOBIN 30.3 pg (28-32); MEAN CORPUSCULAR HGB CONC 33.1 g/dL (31-35); MEAN CORPUSCULAR VOLUME 91.4 fL (81-99); MONOCYTES # (AUTO) 0.9 (0.2-0.8); MONOCYTES % 5.9 % (4.4-11.3); NEUTROPHILS # (AUTO) 12.9 (2.1-6.9); NEUTROPHILS % 81.4 % (38.7-80.0); PLATELET COUNT 183 x10e3/uL (140-360); RED BLOOD COUNT 3.14 x10e6/uL (3.6-5.1); RED CELL DISTRIBUTION WIDTH 17.6 % (11.7-14.4)
[2020-02-04 06:25] LABS: ALBUMIN 1.4 g/dL (3.5-5.0); ALBUMIN/GLOBULIN RATIO 0.5 (0.8-2.0); ANION GAP 9.3 mmol/L (8-16); CREATININE, SERUM 1.12 mg/dL (0.57-1.11); POTASSIUM 4.3 mmol/L (3.5-5.1)
[2020-02-04 06:31] LABS: CALCIUM 6.5 mg/dL (8.4-10.2)
[2020-02-04] MEDS: PROPOFOL IV EMULSION 50 ML IV SCH (07:43)
[2020-02-04] MEDS: DEXAMETHASONE SOD PHOS INJ 4 MG/ML VIAL IV SCH (07:55)
[2020-02-04] MEDS: NYSTATIN 15 GM POWDER UD BTL TOP SCH ×2 (07:55→17:28)
[2020-02-04] MEDS: CALCIUM CARBONATE 500 MG CHEWABLE TABS PO SCH ×2 (07:55→17:27)
[2020-02-04] MEDS: BALSAM PERU/CASTOR OIL 60 GM OINT...G. TP SCH (09:00)
[2020-02-04] MEDS: ENOXAPARIN SOD INJ 40 MG/0.4 ML SYR SC SCH (17:28)
[2020-02-05] VITALS (20 sets, daily range): BP systolic 99–121; BP diastolic 58–95
[2020-02-05 03:31] LABS: BASOPHILS % 0.2 % (0.0-1.0); EOSINOPHILS % 0.1 % (0.0-6.0); HEMATOCRIT 31.6 % (34.2-44.1); HEMOGLOBIN 10.2 g/dL (12.0-16.0); LYMPHOCYTES # (AUTO) 1.6 (1.0-3.2); LYMPHOCYTES % 10.7 % (18.0-39.1); MEAN CORPUSCULAR HEMOGLOBIN 29.1 pg (28-32); MEAN CORPUSCULAR HGB CONC 32.3 g/dL (31-35); MONOCYTES # (AUTO) 0.9 (0.2-0.8); MONOCYTES % 5.9 % (4.4-11.3); NEUTROPHILS # (AUTO) 12.4 (2.1-6.9); NEUTROPHILS % 81.3 % (38.7-80.0); PLATELET COUNT 180 x10e3/uL (140-360); RED BLOOD COUNT 3.51 x10e6/uL (3.6-5.1); RED CELL DISTRIBUTION WIDTH 17.6 % (11.7-14.4)
[2020-02-05 03:49] LABS: ALBUMIN 1.5 g/dL (3.5-5.0); ALBUMIN/GLOBULIN RATIO 0.4 (0.8-2.0); ANION GAP 12.5 mmol/L (8-16); CREATININE, SERUM 1.08 mg/dL (0.57-1.11); POTASSIUM 4.5 mmol/L (3.5-5.1)
[2020-02-05 03:50] LABS: CALCIUM 6.8 mg/dL (8.4-10.2)
[2020-02-05] MEDS: MEROPENEM 1GM 100 ML IV SCH ×3 (05:19→22:44)
[2020-02-05] MEDS: CALCIUM CARBONATE 500 MG CHEWABLE TABS PO SCH ×2 (07:59→16:51)
[2020-02-05] MEDS: DEXAMETHASONE SOD PHOS INJ 4 MG/ML VIAL IV SCH (07:59)
[2020-02-05] MEDS: NYSTATIN 15 GM POWDER UD BTL TOP SCH ×2 (07:59→16:51)
[2020-02-05 08:36] LABS: ABG HCO3 24 mmol/L (22-26); ABG PCO2 32 mmHg (35-45); ABG PH 7.48 (7.35-7.45); ABG PO2 107 mmHg (80-105); ABG TCO2 25
[2020-02-05] MEDS: BALSAM PERU/CASTOR OIL 60 GM OINT...G. TP SCH (10:16)
[2020-02-05] MEDS: ENOXAPARIN SOD INJ 40 MG/0.4 ML SYR SC SCH (16:51)
[2020-02-05] MEDS ORDERED: SODIUM CHLORIDE 0.9% 250ML 250 ML ONE (21:28)
[2020-02-06] VITALS (8 sets, daily range): BP systolic 100–131; BP diastolic 73–102
[2020-02-06] MEDS: MEROPENEM 1GM 100 ML IV SCH ×3 (05:16→22:08)
[2020-02-06] MEDS: DEXAMETHASONE SOD PHOS INJ 4 MG/ML VIAL IV SCH (08:38)
[2020-02-06] MEDS: CALCIUM CARBONATE 500 MG CHEWABLE TABS PO SCH ×2 (08:38→17:36)
[2020-02-06] MEDS: NYSTATIN 15 GM POWDER UD BTL TOP SCH ×2 (09:09→17:36)
[2020-02-06] MEDS: BALSAM PERU/CASTOR OIL 60 GM OINT...G. TP SCH (09:09)
[2020-02-06] MEDS: MORPHINE SULFATE 2 MG/ML SYR 1ML IV PRN ×3 (12:12→19:50)
[2020-02-06] MEDS: ENOXAPARIN SOD INJ 40 MG/0.4 ML SYR SC SCH (17:36)
[2020-02-07] VITALS: BP 99/78
[2020-02-07] MEDS: MORPHINE SULFATE 2 MG/ML SYR 1ML IV PRN ×3 (00:20→09:01)
[2020-02-07 04:00] VITALS: BP 112/84
[2020-02-07 05:02] LABS: ANION GAP 10.3 mmol/L (8-16); BLOOD UREA NITROGEN 31 mg/dL (7-26); BUN/CREATININE RATIO 41 (6-25); CARBON DIOXIDE 24 mmol/L (22-29); CHLORIDE 107 mmol/L (98-107); CREATININE, SERUM 0.75 mg/dL (0.57-1.11); EST GLOMERULAR FILTRATION RATE > 60 ML/MIN (60-); GLUCOSE 114 mg/dL (74-118); POTASSIUM 4.3 mmol/L (3.5-5.1); SODIUM 137 mmol/L (136-145)
[2020-02-07] MEDS: MEROPENEM 1GM 100 ML IV SCH ×2 (06:18→13:20)
[2020-02-07 07:00] VITALS: BP 105/62
[2020-02-07] MEDS: DEXAMETHASONE SOD PHOS INJ 4 MG/ML VIAL IV SCH (08:57)
[2020-02-07] MEDS: BALSAM PERU/CASTOR OIL 60 GM OINT...G. TP SCH (08:58)
[2020-02-07] MEDS: NYSTATIN 15 GM POWDER UD BTL TOP SCH (08:58)
[2020-02-07] MEDS: CALCIUM CARBONATE 500 MG CHEWABLE TABS PO SCH (08:58)
[2020-02-07 12:27] VITALS: BP 124/86
== END 2020-02-07 18:00 | disposition hospice, home (50) | DRG 870 ==
LOC: ER 08:12 → ERHOLD 09:24 → IMCU 12:06 → ICU 14:51 → IMCU 02-05 16:40
PROVIDERS: ADMIT Internal Medicine; ATTEND Internal Medicine
PROC: 5A1955Z Respiratory Ventilation, Greater than 96 Consecutive Hours (ICD-10-PCS; principal; 2020-02-01)
PROC: 0BH18EZ Insertion of Endotracheal Airway into Trachea, Via Natural or Artificial Opening Endoscopic (ICD-10-PCS; 2020-02-01)
PROC: 02HV33Z Insertion of Infusion Device into Superior Vena Cava, Percutaneous Approach (ICD-10-PCS; 2020-02-01)
PROC: 8E0ZXY6 Isolation (ICD-10-PCS; 2020-02-01)
DX: A41.9 Sepsis, unspecified organism (principal); L89.153 Pressure ulcer of sacral region, stage 3; R65.21 Severe sepsis with septic shock; J96.00 Acute respiratory failure, unspecified whether with hypoxia or hypercapnia; U07.1 COVID-19; E43 Unspecified severe protein-calorie malnutrition; J12.89 Other viral pneumonia; G93.41 Metabolic encephalopathy; E87.2 Acidosis; N39.0 Urinary tract infection, site not specified; E85.1 Neuropathic heredofamilial amyloidosis; N17.9 Acute kidney failure, unspecified; Z16.12 Extended spectrum beta lactamase (ESBL) resistance; Z66 Do not resuscitate; E87.8 Other disorders of electrolyte and fluid balance, not elsewhere classified; B96.20 Unspecified Escherichia coli [E. coli] as the cause of diseases classified elsewhere; B96.4 Proteus (mirabilis) (morganii) as the cause of diseases classified elsewhere; F03.90 Unspecified dementia, unspecified severity, without behavioral disturbance, psychotic disturbance, mood disturbance, and anxiety; D69.6 Thrombocytopenia, unspecified; F09 Unspecified mental disorder due to known physiological condition; L89.612 Pressure ulcer of right heel, stage 2; E86.1 Hypovolemia; E83.51 Hypocalcemia; D64.9 Anemia, unspecified; Z51.5 Encounter for palliative care; E88.09 Other disorders of plasma-protein metabolism, not elsewhere classified; E87.6 Hypokalemia; E66.9 Obesity, unspecified; Z68.39 Body mass index [BMI] 39.0-39.9, adult; F32.9 Major depressive disorder, single episode, unspecified; K44.9 Diaphragmatic hernia without obstruction or gangrene
CPT/HCPCS: 31500; 36415; 36600; 71045; 71260; 74018; 74177; 80048; 80053; 80202; 81001; 82550; 82553; 82805; 83605; 83735; 83880; 84100; 84484; 85025; 87040; 87086; 87186; 93005; 94002; 94003; 99251; 99284; J0330; J0360; J0610; J0692; J1100; J1650; J2250; J2270; J2405; J3370; J3480; J7030; J7050; J7070; J7121; P9047; Q9967; U0002